=== PATIENT | female | born 1965 | race Caucasian/White ===

== ENCOUNTER 2016-09-21 06:48 | Inpatient (IN) | payer BC ==
--- NOTE | ~2016-09-21 | PREOPHP ---
PreOp History and Physical [facility] [address] [place]. [address] NAME: BERNADINE SUTHERLAND : 61 STATUS : ADM IN PAT#: [id number] AGE: 51 ADM/REG DATE : 09/21/16 MR#: [id number] REPORT SERV DATE: 09/21/16 DICTATED BY: GURINDER DIAZ DATE: 09/21/16 REPORT STATUS : Draft TRANSCRIBED BY: JANAK DATE: 09/21/16 CHIEF COMPLAINT: Back pain and right leg pain. 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 She has also had a prior fusion at L5-S1. She has had two diskectomies at L4-5 and now has a third time recurrent HNP on the right at L4-5. Much of the facet joint is missing, but now a complete facetectomy would be required in order to completely remove the third time herniation. With a complete facetectomy, and with so much loss of disk, she will have instability, thus the need for re-stabilization which will be carried out through a transforaminal diskectomy, interbody cage insertion, and interbody fusion with posterior instrumentation. She tried normal conservative care which has failed. Consent form has been signed for the above. PAST MEDICAL HISTORY: Exogenous obesity, diabetes mellitus type 2, rosacea, osteoarthritis, and osteopenia. She also has sleep apnea. PAST SURGICAL HISTORY: Multiple. She has had many surgeries. These are actually listed in the assessment forms. Please see those for details. In brief, there has been abdominal hysterectomy. There has been ankle surgery including fusion on the left. She has had a C4 to T1 fusion posterior in the cervical spine as well as the anterior interbody fusion at L5- S1 and multiple diskectomies at L4-5. She has also had other carpal tunnel release, etc. CURRENT MEDICATIONS: Listed as well in the chart. ALLERGIES: NONE. SOCIAL HISTORY: She is . 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 FAMILY HISTORY: Noncontributory. REVIEW OF SYSTEMS: She wears corrective lenses. Denies chest pain, pressure, or shortness of breath. PHYSICAL EXAMINATION: VITAL SIGNS: She is 4 feet 11 inches, 254 pounds. She is 115 kg. GENERAL: She is alert, cooperative, well oriented. Ambulates with a slight limp. HEENT: Exam is grossly normal. LUNGS: Clear to auscultation. HEART: Rate is regular and rhythmic. ABDOMEN: Soft with good bowel sounds. No peritoneal signs are noted. SPINE: The spine has previous small incisions which are well healed. She has limited range of motion due to the pain. She has a positive straight leg raising on the right. She has a partial . Weakness of 4/5 for the tibialis anterior and EHL. I did not try to have her heel walk or toe walk. She does have decreased sensation in the L5 distribution on the right compared to the left with regard to light touch and to pinwheel testing. She has no evidence of myelopathy. Toes are downgoing. No ankle clonus is found. Damon signs are negative. Fabere signs are negative. PreOp History and Physical [address] [address] NAME: BERNADINE SUTHERLAND : 61 STATUS : ADM IN PAT#: [id number] AGE: 51 ADM/REG DATE : 09/21/16 MR#: [id number] REPORT SERV DATE: 09/21/16 DICTATED BY: GURINDER DIAZ DATE: 09/21/16 REPORT STATUS : Draft TRANSCRIBED BY: JANAK DATE: 09/21/16 Orthopedically, she has no pain with movement of hips, knees, or ankles. There are pulses in all four extremities. No abnormal skin lesions are found. 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 RECOMMENDATIONS: As listed above. Also please note, because of the complexity of the surgery, and the need to identify correct level of surgery intraoperatively as well as a desire to carry out the safest and most precise dissection, I feel the intraoperative navigation will be mandatory. /JANAK Gurinder Diaz D.O. / [id number] CC: Shanon Robins, M.D.
--- NOTE | ~2016-09-21 | OP ---
Record Of Operation [facility] [address] [place]. [address] NAME: BERNADINE SUTHERLAND : 61 STATUS : ADM IN PAT#: [id number] AGE: 51 ADM/REG DATE : 09/21/16 MR#: [id number] REPORT SERV DATE: 09/21/16 DICTATED BY: GURINDER DIAZ DATE: 09/21/16 REPORT STATUS : Draft TRANSCRIBED BY: MODL DATE: 09/21/16 DATE OF PROCEDURE: 09/21/2016 PREOPERATIVE DIAGNOSES: 1. 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 2. Iatrogenic instability secondary to the need for complete facetectomy, right L4-5. POSTOPERATIVE DIAGNOSES: 1. 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 2. Iatrogenic instability secondary to the need for complete facetectomy, right L4-5. PROCEDURE: 1. Microscopic and navigation-assisted surgery. 2. Right L4-5 hemilaminectomy, foraminotomy, facetectomy, transforaminal diskectomy, anterior interbody Capstone cage insertion, posterolateral interbody fusion with local bone graft and allograft. 3. Posterior percutaneous Voyager instrumentation at L4-5. FULL STACK SOFTWARE DEVELOPER: Ish Toussaint. ANESTHESIA: General. BLOOD LOSS: 50 mL. INDICATION FOR SURGERY: Risks were explained. They are listed in last office note as well as history and physical. See that for detail. OPERATION: Antibiotic prophylaxis was given. Neurophysiology monitoring leads were inserted. The patient was brought to the operative suite. General anesthetic including endotracheal intubation was administered. A Bhatti catheter was placed with sterile technique. The patient was placed prone on a Bandar spine frame. Bony prominences were carefully padded. Thoracolumbar spine was scrubbed with Hibiclens solution. DuraPrep was painted. Sterile drapes applied. Because of the complexity of surgery and the need to identify correct level of surgery intraoperatively as well as desire to carry out the safest and most precise dissection, I felt intraoperative navigation was mandatory. A small stab wound was carried out over the left posterior-superior iliac spine. A percutaneous pin with navigational frame attached was inserted in PSIS. Intraoperative CT scan with O-arm obtained. CT information was used to register the navigational system. With navigational assistance, I identified the L4-5 on the right side just lateral to the facet joint. A 3 cm skin incision was carried out. A blunt navigated probe was placed through the fascia and muscle and docked over the facet joint. Muscle dilators were inserted followed by placement of a tubular retractor attached to an arm mount on the table. Record Of Operation [facility] [address] [place]. [address] NAME: BERNADINE SUTHERLAND : 61 STATUS : ADM IN PAT#: [id number] AGE: 51 ADM/REG DATE : 09/21/16 MR#: [id number] REPORT SERV DATE: 09/21/16 DICTATED BY: GURINDER DIAZ DATE: 09/21/16 REPORT STATUS : Draft TRANSCRIBED BY: MODL DATE: 09/21/16 The microscope was sterilely draped and used throughout the remainder of the procedure. With navigational assistance, I identified the top of the pedicle of L5 and the inferior pedicle of L4. I worked from lateral to medial using a combination of a cutting bur, a cheryl bur, and 2 and 3 mm Kerrison rongeurs. I removed the superior articular process of L5 down to the top of the pedicle. The remaining inferior articular process of L4, the pars interarticularis, and the remaining lamina of the L4 also removed. The traversing thecal sac as well as the exiting L4 nerve root carefully protected. A large extruded disk herniation was found in the paracentral location. The epidural adhesions were released and a transforaminal diskectomy was carried out with curettes, rongeurs, and disk reyes. Intradiscal trial was carried out. The wound was irrigated. Bone graft was packed in the interbody space. The cage was then inserted through the transforaminal approach into the midline against the anterior longitudinal ligament using navigational assistance. Additional posterolateral interbody fusion was carried out using a local bone graft, allograft, and a small dosage of bone protein. The retractor was then removed. We also did inject with a 25-gauge spinal needle with 250 mcg of Astramorph intrathecal. We then carried out a 3 cm skin incision just lateral to the facet joint of L4-5 on the left. I used a Voyager pedicle tap and screw instructor warper. I tapped the pedicles of L4 and 5 bilaterally. Polyaxial 6.5 x 50 mm Voyager screws with screw extenders inserted at all four locations. The contoured 35 mm captured petra was then placed through the top portion of the screw extenders, reduced into the tulip of the pedicle screw. The set screws were inserted and tightened with a torque wrench providing rigid stability bilaterally. Screw extenders removed. Intraoperative CT scan with O-arm repeated showing excellent position of all implants. After final wound irrigation, the myofascial layer was allowed to reapproximate itself. The subcutaneous tissue was closed with 2-0 Vicryl sutures, 2-0 vertical mattress nylon suture was used for skin closure. Sterile dressings applied. The patient was returned to supine position, awakened, extubated, and taken to recovery room in satisfactory condition having tolerated procedure well. SEAN/JANAK Gurinder Diaz D.O. / [id number] CC: Gurinder Diaz D.O. Record Of Operation [address] [address] NAME: BERNADINE SUTHERLAND : 61 STATUS : ADM IN [facility]#: [id number] AGE: 51 ADM/REG DATE : 09/21/16 MR#: [id number] REPORT SERV DATE: 09/21/16 DICTATED BY: GURINDER DIAZ DATE: 09/21/16 REPORT STATUS : Draft TRANSCRIBED BY: MODL DATE: 09/21/16 Ishan Kent M.D.
[~2016-09-21 06:48] MED LIST: ADOXA50 MG PO; ADVAIR100 INH; ADVAIR115P INH; ADVAIR45P INH; ADVIL PO; ALEVE; ALLEGRA180 PO; BEN25 PO; BYETTA; CALCIUM PO; CLARINEX5 MG PO; DIL4TAB PO; FIBERCON PO; FLONASE NAS; FLOVENT110 INH; GLUCPH PO; LINZESS 290 M290 MCG PO; LIOR10 PO; LORTAB10 PO; METHOC750B PO; METROCREAM0.75 % TOP; MOBIC15 MG PO; MOBIC7.5 PO; MOTRIN IB200 MG PO; MULTIPLE VIT PO; NAP500 PO; NASONEX NAS; NEUR100 PO; NEUR300 PO; NORCO1 TAB PO; NORFLEX PO; PHENTERMINE37.5 MG PO; PROAIR HFA INH; PROVHFA INH; SINGULAIR1 PO; TYLENOL PM PO; ULTRAM50 PO; VIB50 PO; ZYDONE1 TA2 PO; [UNRECOGNIZED DRUG - OTHER] TOP
[2016-09-21 12:45] LABS: BASOPHILS 0.2 %; BASOPHILS ABSOLUTE 0.03 10/3/uL (0.0-0.16); EOSINOPHILS 1.8 %; EOSINOPHILS ABSOLUTE 0.24 10/3/uL (0.0-0.53); HEMATOCRIT 36.8 % (36.0-48.0); IMMATURE GRANULOCYTES 0.6 %; IMMATURE GRANULOCYTES ABSOLUTE 0.08 10/3/uL (0.0-0.11); LYMPHOCYTES 35.5 %; LYMPHOCYTES ABSOLUTE 4.67 10/3/uL (0.67-4.30); MANUAL DIFF NO %; MEAN CORPUS HGB CONC 35.3 g/dL (32.0-36.0); MEAN CORPUSCULAR HEMOGLOB 30.7 pg (26.0-34.0); MEAN PLATELET VOLUME 10.3 fL (9.2-13.0); MONOCYTES 5.7 %; MONOCYTES ABSOLUTE 0.75 10/3/uL (0.21-1.20); NEUTROPHILS 56.2 %; NEUTROPHILS ABSOLUTE 7.39 10/3/uL (2.02-8.40); PLATELET COUNT 306 10/3/uL (150-400); RBC DISTRIBUTION WIDTH 16.5 % (12.0-16.0); RED CELL COUNT 4.23 10/6/uL (4.0-5.6); WHITE BLOOD CELLS 13.2 10/3/uL (4.5-10.5)
[2016-09-21 12:56] LABS: BUN (BLOOD UREA NITROGEN) 18 MG/DL (6-23); CALCIUM, SERUM 8.3 MG/DL (8.5-10.4); CHLORIDE, SERUM 111 MMOL/L (96-112); CO2 (CARBON DIOXIDE) 24 MMOL/L (24-34); CREATININE 1.06 MG/DL (0.55-1.02); GFR AFRICAN AMERICAN 69 ML/MIN (>=60); GFR NON AFRICAN AMERICAN 60 ML/MIN (>=60); POTASSIUM, SERUM 4.3 MMOL/L (3.5-5.3); SODIUM, SERUM 142 MMOL/L (135-148)
[2016-09-21 12:58] LABS: GLUCOSE, SERUM 155 MG/DL (60-99)
[2016-09-22 11:08] LABS: BUN (BLOOD UREA NITROGEN) 13 MG/DL (6-23); CALCIUM, SERUM 8.2 MG/DL (8.5-10.4); CHLORIDE, SERUM 105 MMOL/L (96-112); CO2 (CARBON DIOXIDE) 28 MMOL/L (24-34); CREATININE 1.04 MG/DL (0.55-1.02); GFR AFRICAN AMERICAN 71 ML/MIN (>=60); GFR NON AFRICAN AMERICAN 61 ML/MIN (>=60); GLUCOSE, SERUM 119 MG/DL (60-99); POTASSIUM, SERUM 3.9 MMOL/L (3.5-5.3); SODIUM, SERUM 140 MMOL/L (135-148)
[2016-09-22 11:26] LABS: BASOPHILS 0.3 %; BASOPHILS ABSOLUTE 0.03 10/3/uL (0.0-0.16); EOSINOPHILS 1.1 %; EOSINOPHILS ABSOLUTE 0.12 10/3/uL (0.0-0.53); HEMATOCRIT 37.9 % (36.0-48.0); HEMOGLOBIN 12.1 g/dL (12.0-16.0); IMMATURE GRANULOCYTES 0.5 %; IMMATURE GRANULOCYTES ABSOLUTE 0.06 10/3/uL (0.0-0.11); LYMPHOCYTES 17.4 %; LYMPHOCYTES ABSOLUTE 1.94 10/3/uL (0.67-4.30); MEAN PLATELET VOLUME 10.4 fL (9.2-13.0); MONOCYTES ABSOLUTE 0.67 10/3/uL (0.21-1.20); NEUTROPHILS 74.7 %; NEUTROPHILS ABSOLUTE 8.34 10/3/uL (2.02-8.40); PLATELET COUNT 264 10/3/uL (150-400); RBC DISTRIBUTION WIDTH 14.6 % (12.0-16.0); RED CELL COUNT 4.65 10/6/uL (4.0-5.6)
[2016-09-22 11:27] LABS: MANUAL DIFF NO %; MEAN CORPUS HGB CONC 31.9 g/dL (32.0-36.0); MEAN CORPUSCULAR VOLUME 81.5 fL (80-100); WHITE BLOOD CELLS 11.2 10/3/uL (4.5-10.5)
[2016-09-23] MEDS ORDERED: DIL4TAB PO (11:20)
[2016-09-23] MEDS ORDERED: ZOFRAN4 PO (11:21)
== END 2016-09-23 13:12 | disposition home or self-care (01) | DRG 460 ==
LOC: SDC/OF 06:48 → 3SO 14:44
PROVIDERS: Orthopaedic Surgery Orthopaedic Surgery of the Spine
PROC: 0SG00AJ Fusion of Lumbar Vertebral Joint with Interbody Fusion Device, Posterior Approach, Anterior Column, Open Approach (ICD-10-PCS; principal; 2016-09-21 08:30)
PROC: 0ST20ZZ Resection of Lumbar Vertebral Disc, Open Approach (ICD-10-PCS; 2016-09-21 08:30)
PROC: 4A11X4G Monitoring of Peripheral Nervous Electrical Activity, Intraoperative, External Approach (ICD-10-PCS; 2016-09-21 08:30)
DX: M51.36 Other intervertebral disc degeneration, lumbar region (principal); Z68.43 Body mass index [BMI] 50.0-59.9, adult; G47.33 Obstructive sleep apnea (adult) (pediatric); E11.9 Type 2 diabetes mellitus without complications; E66.01 Morbid (severe) obesity due to excess calories
CPT/HCPCS: 80048; 82962; 85025; 87641; 88304; 88311; 93005; 97116-GP; 97161-GP; A9270-GY; C1713; J0690; J1644; J2250; J2274; J2405; J2710; J3010